=== PATIENT | female | born 1945 | race Caucasian/White ===

== ENCOUNTER 2017-03-31 16:13 | Emergency (ER) | payer MEDICARE ==
[~2017-03-31] VITALS: Ht 174 cm; Wt 156.0 kg
[~2017-03-31 16:13] MED LIST: ALLO300T74 PO; CA C-1 PO; CETI-115 PO; CITA20TA9 PO; FENO54TA6 PO; GABA-338 PO; HYDR-3989 PO; INSU100C6 SQ; INSU100V12 SQ; METO-277 PO; MULT-1198 PO; OMEG1CAP38 PO; SIMV20TA6 PO; TRIA-15 PO
[2017-03-31 16:15] VITALS: Ht 174 cm; Wt 156.0 kg
--- NOTE | 2017-03-31 16:33 | NUR ---
PROVIDER Sara TIPTON VEST FINISHER IN TO SEE PATIENT.
--- NOTE | 2017-03-31 16:46 | NUR ---
LAB NOTIFIED AT THIS TIME.
--- NOTE | 2017-03-31 16:47 | NUR ---
ICT SUPPORT TECHNICIANS IN ROOM AT THIS TIME.
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
[2017-03-31 16:57] LABS: BASOPHILS % (AUTO) 0.4 % (0-2); EOSINOPHILS # (AUTO) 0.4 T/MM3 (0-0.5); EOSINOPHILS % (AUTO) 3.9 % (0-4); HCT - HEMATOCRIT 43.4 % (36-46); HGB - HEMOGLOBIN 13.9 GM/DL (12-16); IMMATURE GRANULOCYTE # (AUTO) 0.02 T/MM3 (0.00-0.03); IMMATURE GRANULOCYTE % (AUTO) 0.2 % (0.0-0.5); LYMPHOCYTES # (AUTO) 2.4 T/MM3 (1-4.8); LYMPHOCYTES % (AUTO) 21.5 % (23-45); MEAN CORPUSCULAR HGB 32.3 UUG (26-34); MEAN CORPUSCULAR VOLUME 100.9 UM3 (80-100); MEAN PLATELET VOLUME 10.5 UM3 (9.4-12.4); MONOCYTES # (AUTO) 0.5 T/MM3 (0-0.8); MONOCYTES % (AUTO) 4.9 % (0-9.0); NEUTROPHILS #(AUTO)-ABSOLUTE 7.7 T/MM3 (1.8-7.7); NEUTROPHILS % (AUTO) 69.1 % (33-66); WBC - WHITE BLOOD COUNT 11.1 T/MM3 (4.5-11.0)
[2017-03-31 17:10] LABS: ANION GAP 13 MEQ/L (5-15); BUN/CREATININE RATIO 19 RATIO (6-26); CALCIUM 9.6 MG/DL (8.4-10.2); CHLORIDE 101 MEQ/L (98-107); CO2 - CARBON DIOXIDE 29 MEQ/L (22-30); CREATININE 1.4 MG/DL (0.7-1.2); GLOMERULAR FILTRATION RATE 37; GLUCOSE 161 MG/DL (65-110); POTASSIUM 4.3 MEQ/L (3.6-5); SODIUM 143 MEQ/L (134-144)
[2017-03-31 17:33] LABS: BLOOD, URINE NEGATIVE (NEGATIVE); COLOR,URINE YELLOW (YELLOW); LEUKOCYTE ESTERASE ,URINE NEGATIVE (NEGATIVE); NITRITE,URINE NEGATIVE (NEGATIVE); UROBILINOGEN,URINE 0.2 EU/DL (NORMAL)
--- NOTE | 2017-03-31 18:13 | NUR ---
ELIMINATION PATIENT UP TO BSC TO ATTEMPT TO VOID. WAS UNSUCCESSFUL. PLACED IN W/C FOR CT.
--- NOTE | 2017-03-31 18:16 | NUR ---
TO CT PER W/C.
--- NOTE | 2017-03-31 18:30 | NUR ---
BACK FROM CT
--- NOTE | 2017-03-31 19:18 | NUR ---
PROVIDER Sara TIPTON CARTOGRAPHY/MAPPING TECHNICIAN IN TO SEE PATIENT.
--- NOTE | 2017-03-31 19:30 | NUR ---
PROVIDER Sara TIPTON FURNITURE FINISHER IN TO TALK TO PATIENT AND FAMILY MEMBER.
[2017-03-31 19:59] VITALS: BP 143/67; PULSE 70; RESP 18; TEMP 97.7; O2SAT 94
--- NOTE | 2017-03-31 19:59 | NUR ---
DISCHARGE PT AND DAUGHTER GIVEN INSTRUCTIONS FOR CONT SELF CARE FOR WAEKNESS W/ FOLLOWUP SOCIAL WORK CONSULT. PT VERBALIZED UNDERSTANDING AND SIGNED FORM, PT LFET ER W/ WHEELCHAIR ASSIST NORMAL FOR PT, ALERT, VS CHARTED AND NO ACUTE DISTRESS W/ XFER TO P.O.V. AT DEPARTURE.
--- NOTE | 2017-04-01 08:11 | DI ---
Indication: ITS.REASON: confusion PROCEDURE: CT HEAD W/O CONTRAST: Encounter: Initial Comparison: None Technique: Axial CT images through the head were performed without contrast. Iterative Reconstruction dose reducing technique was utilized. FINDINGS: Mild atrophy. The ventricles are of normal size, shape, and contour for the patient's age. Chronic appearing bilateral basal ganglia lacunar infarcts. There are scattered areas of low attenuation in the white matter which most likely represent changes from chronic microvascular ischemia. The brainstem, cerebellum, and cerebral hemispheres otherwise have a normal morphology and CT attenuation. There is no evidence of midline displacement. No hemorrhage, signs of acute territorial stroke, mass effect, mass lesions, or edema is evident. The visualized portions of the skull base, midface, and calvarium demonstrate no abnormality. The paranasal sinuses are well aerated and free of significant disease. The tympanic and mastoid cavities appear normal. IMPRESSION: No acute intracranial abnormality or hemorrhage. There is a preliminary report by virtual radiologic. .
--- NOTE | 2017-04-04 11:39 | NUR ---
ED FOLLOW UP THIS WORKER ATTEMPTED TO REACH PT/DAUGHTER ON THIS DATE. NO ABILITY TO LEAVE MESSAGE AT THIS TIME. Addendum: 04/04/17 at 1140 by SHILPI ESCOBAR Amended: Links added.
== END 2017-03-31 19:59 | disposition home or self-care (01) ==
LOC: ED 16:13
DX: R41.0 Disorientation, unspecified (principal)
CPT/HCPCS: 36415; 80048; 81003; 85025

== ENCOUNTER 2017-10-06 16:48 | Inpatient (IN) ==
[2017-10-06] MEDS: SALINE FLUSH 10ml SYRINGE IVF PRN (17:59)
--- NOTE | 2017-10-06 18:06 | Emergency Department Report ---
Female Urogenital HPI - General Chief complaint: Urogenital-Female Stated complaint: infection in vag,blood sugar high,forgetful Time Seen by Provider: 10/06/17 17:22 Source: family Mode of arrival: wheelchair Limitations: no limitations - History of Present Illness HPI Narrative: Family brings pt in to ER with concerns that pt has some type of vaginal infection, her blood sugars have been erratic, and she has had increased weakness and is no longer able to stand for transfers. Pt has seen a physician for her vaginal "issue" she has been placed on 2 different types of topical medications of unknown type with minimal relief. MD Complaint: genital rash, genital swelling Onset (ago): day(s) Location: labia Duration: constant Relieving factors: none - Related Data Home Medications Medication Instructions Recorded Confirmed Allopurinol 300 mg PO DAILY #0 12/05/11 10/06/17 Triamterene/Hydrochlorothiazid 0.5 tab PO DAILY #0 12/05/11 10/06/17 [Maxzide 75 mg-50 mg Tablet] Citalopram Hydrobromide 20 mg PO DAILY #0 09/10/16 10/06/17 [Citalopram HBr] Simvastatin 20 mg PO HS #0 09/10/16 10/06/17 Insulin Aspart [Novolog] 10 unit SQ TIDWM #0 vial 03/31/17 10/06/17 Insulin Detemir [Levemir] 32 unit SQ HS #0 vial 03/31/17 10/06/17 Gabapentin 600 mg PO TID 07/02/17 10/06/17 Ascorbic Acid [Vitamin C] 100 mg PO DAILY 10/06/17 10/06/17 Benzocaine/Resorcinol [Vagisil 1 applic TP PRN 10/06/17 10/06/17 Cream] Hydrocodone/APAP 10/325 [Davison 1 tab PO PRN PRN 10/06/17 10/06/17 10/325] Vits A and D/White Pet/Lanolin [A 1 applic TOP PRN 10/06/17 10/06/17 and D Ointment] Allergies Allergy/AdvReac Type Severity Reaction Status Date / Time aspirin AdvReac Unknown Verified 10/06/17 17:45 dexamethasone AdvReac Unknown Verified 10/06/17 17:45 Sulfa (Sulfonamide AdvReac Unknown Verified 10/06/17 17:45 Antibiotics) dexamethasone sod phosphate AdvReac Unknown Uncoded 03/31/17 16:30 hydrocodone bit AdvReac Unknown Uncoded 03/31/17 16:30 Nitrofurantoin Macrocrystal AdvReac Unknown Uncoded 03/31/17 16:30 sertraline HCl AdvReac Unknown Uncoded 03/31/17 16:30 Review of Systems Limitations: ROS unobtainable due to patient's medical condition [facility] Patient Stated Medical History Diabetes Mellitus Type 1 Yes Now No Clinic Medical History Peripheral neuropathy (Inactive Medical) - Social History Smoking status: Former smoker Physical Exam - Limitations Limitations: altered mental status - General General appearance: alert, in no apparent distress - Normal Exams: Head:: Normocephalic without trauma Neck:: Full range of motion, without adenopathy Chest/Respirations:: Clear all garsia, with good airflow Cardiovascular:: Regular rate and rhythm, without murmur or gallop Abdomen:: Bowel sounds positive, soft, non-tender, non-distended Musculoskeletal:: No tenderness, or deformity noted, good range of motion, all extremities Integumentary:: No rashes Neurological:: Patient is alert Psychiatric:: Patient exhibits, appropriate attention, emotion and affect - External exam: Present: erythema, tenderness Course Vital Signs Pulse Rate 99 10/06/17 17:26 Respiratory Rate 20 10/06/17 17:26 Blood Pressure 140/65 H 10/06/17 17:26 Pulse Oximetry 94 10/06/17 17:26 Pulse Rate 99 10/06/17 17:26 Respiratory Rate 20 10/06/17 17:26 Blood Pressure 140/65 H 10/06/17 17:26 Pulse Oximetry 94 10/06/17 17:26 Urogenital-Female - MDM Narrative Medical decision making narrative: Pt labs reviewed. Pt to be admitted for UTI. After lengthy discussion with family they are finding care at home is becoming increasingly difficult especially with pts decreasing strength and ability to stand. Discussed findings with Dr Villanueva who has agreed to admit - Differential Diagnosis Likely: urinary tract infection, bacterial vaginosis, cervicitis, vaginitis, cystitis - Lab Data Attestation: I reviewed the patient's lab results. Result diagrams: 10/06/17 17:56 10/06/17 17:56 Lab Results 10/06/17 10/06/17 10/06/17 Range/Units 17:45 17:56 17:56 WBC 10.3 (4.5-11.0) T/MM3 RBC 4.55 (4.00-5.20) M/MM3 Hgb 15.0 (12-16) GM/DL Hct 44.0 (36-46) % MCV 96.7 (80-100) UM3 MCH 33.0 (26-34) UUG MCHC 34.1 (31-37) GM/DL RDW Std Deviation 50.6 H (36.9-50.2) FL Plt Count 288 (130-400) T/MM3 MPV 10.7 (9.4-12.4) UM3 Immature Gran % (Auto) 0.2 (0.0-0.5) % Neut % (Auto) 69.6 H (33-66) % Lymph % (Auto) 22.9 L (23-45) % Coffee % (Auto) 4.7 (0-9.0) % Eos % (Auto) 2.2 (0-4) % Baso % (Auto) 0.4 (0-2) % Neut # (Auto) 7.2 (1.8-7.7) T/MM3 Lymph # (Auto) 2.4 (1-4.8) T/MM3 Coffee # (Auto) 0.5 (0-0.8) T/MM3 Eos # (Auto) 0.2 (0-0.5) T/MM3 Baso # (Auto) 0.0 (0-0.2) T/MM3 Abs Immat Gran (auto) 0.02 (0.00-0.03) T/MM3 Turbidity < 20 (0-20) Sodium 141 (134-144) MEQ/L Potassium 3.8 (3.6-5) MEQ/L Chloride 102 (98-107) MEQ/L Carbon Dioxide 27 (22-30) MEQ/L Anion Gap 12 (5-15) MEQ/L BUN 29.0 H (7-17) MG/DL Creatinine 1.4 H (0.7-1.2) MG/DL GFR Calculation 37 BUN/Creatinine Ratio 21 (6-26) RATIO Glucose 197 H (65-110) MG/DL Calculated Osmolality 282 H (261-280) MOSM/KG Calcium 9.6 (8.4-10.2) MG/DL Total Bilirubin 0.40 (0.20-1.30) MG/DL Icterus Index < 2 (0-7) AST 23 (14-36) U/L ALT 35 (9-52) U/L Alkaline Phosphatase 77 (38-126) U/L Total Protein 8.0 (6.3-8.2) G/DL Albumin 4.2 (3.5-5.0) G/DL Globulin 3.8 H (2.4-3.6) G/DL Albumin/Globulin Ratio 1.1 (1.1-2.2) RATIO Specimen Hemolysis < 15 (0-25) Ur Collection Type Urine, catheter Urine Color Yellow (YELLOW) Urine Clarity Clear Urine pH 5.5 (5.0-8.0) Ur Specific [place] >=1.030 H (1.015-1.025) Urine Protein 2+ A (NEGATIVE) Urine Glucose (UA) Negative (NEGATIVE) Urine Ketones Negative (NEGATIVE) Urine Occult Blood Negative (NEGATIVE) Urine Nitrate Negative (NEGATIVE) Urine Bilirubin 1+ A (NEGATIVE) Urine Urobilinogen 0.2 (NORMAL) EU/DL Ur Leukocyte Esterase Negative (NEGATIVE) Urine RBC 5-10 H (0-3) /HPF Urine WBC 50-200 H (0-5) /HPF Urine WBC Clumps Many H Ur Squamous Epith Cells 20-50 Amorphous Sediment Few Urine Bacteria 2+ H (NEGATIVE) Hyaline Casts 30-50 /LPF Urine Mucus Present Ur Culture Indicated? Cult reflexed &setup Disposition Clinical Impression: Urinary tract infection Qualifiers: Urinary tract infection type: acute cystitis Hematuria presence: with hematuria Qualified Code(s): N30.01 - Acute cystitis with hematuria Disposition: 02 To [facility] Acute Care Condition: Improved Prescriptions: No Action Triamterene/Hydrochlorothiazid [Maxzide 75 mg-50 mg Tablet] 0.5 tab PO DAILY #0 Simvastatin 20 mg PO HS #0 Citalopram Hydrobromide [Citalopram HBr] 20 mg PO DAILY #0 Insulin Detemir [Levemir] 32 unit SQ HS #0 vial Insulin Aspart [Novolog] 10 unit SQ TIDWM #0 vial Benzocaine/Resorcinol [Vagisil Cream] 1 applic TP PRN Hydrocodone/APAP 325 [Davison 10/] 1 tab PO PRN PRN PRN Reason: Pain Ascorbic Acid [Vitamin C] 100 mg PO DAILY Vits A and D/White Pet/Lanolin [A and D Ointment] 1 applic TOP PRN Allopurinol 300 mg PO DAILY #0 Gabapentin 600 mg PO TID Referrals: Dong Valero DO [Primary Care Provider] - Time of Disposition: 19:28 - Seen By: midlevel
[2017-10-06] MEDS ORDERED: ONDANSETRON 4 MG/2 ML INJECTION IVP PRN (20:21)
[2017-10-06 20:47] VITALS: BMI 50.1
--- NOTE | 2017-10-06 21:12 | History & Physical Report ---
History of Present Illness Date: 10/07/17 Chief complaint: weakness HPI: 72 yo morbidly obese female with PMH of DM2 who is completely dependent on her daughter show is her primary in home caregiver presented to the ED with reports of possible vaginal infection. Patient's daughter is the primary historian as patient is confused. She reports increased weakness att home, as well as some confusion and difficult to control blood sugars. Patient reports symptoms started about 1 week ago. She has also had decreased appetite, only eating one meal a day. Daughter also reports watery diarrhea at home. Patient has been treated recently by her PCP for a "vaginal infection" with two medications , but reports the symptoms are not improving. Patient was found to have a UTI in the ED. She was admitted for further treatment. Review of Systems ROS unobtainable: due to mental status (confusion) [facility] Medical History Urinary tract infection (Acute Medical) Peripheral neuropathy (Inactive Medical) - Social History Smoking status: Former smoker Medications Home Medications Medication Instructions Recorded Confirmed Type Allopurinol 300 mg PO DAILY #0 12/05/11 10/06/17 History Triamterene/Hydrochlorothiazid 0.5 tab PO DAILY #0 12/05/11 10/06/17 History [Maxzide 75 mg-50 mg Tablet] Citalopram Hydrobromide 20 mg PO DAILY #0 09/10/16 10/06/17 History [Citalopram HBr] Simvastatin 20 mg PO HS #0 09/10/16 10/06/17 History Insulin Aspart [Novolog] 10 unit SQ TIDWM #0 vial 03/31/17 10/06/17 History Insulin Detemir [Levemir] 32 unit SQ HS #0 vial 03/31/17 10/06/17 History Gabapentin 600 mg PO TID 07/02/17 10/06/17 History Ascorbic Acid [Vitamin C] 100 mg PO DAILY 10/06/17 10/06/17 History Benzocaine/Resorcinol [Vagisil 1 applic TP PRN 10/06/17 10/06/17 History Cream] Hydrocodone/APAP 10325 [[place] 1 tab PO TID PRN 10/06/17 10/06/17 History 10325] Vits A and D/White Pet/Lanolin [A 1 applic TOP PRN 10/06/17 10/06/17 History and D Ointment] Allergies Allergy/AdvReac Type Severity Reaction Status Date / Time aspirin AdvReac Unknown Verified 10/06/17 17:45 dexamethasone AdvReac Unknown Verified 10/06/17 17:45 Sulfa (Sulfonamide AdvReac Unknown Verified 10/06/17 17:45 Antibiotics) hydrocodone bit AdvReac Unknown Itching Uncoded 10/06/17 21:07 Nitrofurantoin Macrocrystal AdvReac Unknown Uncoded 03/31/17 16:30 sertraline HCl AdvReac Unknown Uncoded 03/31/17 16:30 Exam Vital Signs: Pulse Rate 99 10/06/17 20:17 Respiratory Rate 20 10/06/17 20:17 Blood Pressure 140/65 H 10/06/17 20:17 Pulse Oximetry 94 10/06/17 20:17 Height/Weight/BMI: Height 1.73 m Weight 149.5 kg Body Mass Index 50.1 - Constitutional Present: mild distress, morbidly obese, cooperative - Routine Respiratory Exam Present: CTA bilaterally. Absent: wheezes - Routine Cardiovascular Exam Present: RRR. Absent: murmur - Routine Abdominal Exam Present: tenderness, distended - Routine Extremities Exam Present: normal capillary refill - Routine Skin Exam Comments: per TECHNICAL STAFF ENGINEER in ED patient has erythema and swelling under her pannus, vagina and inguinal area. - Routine Neurological Exam Present: altered mental status (general confusion) - Routine Psychiatric Exam Present: normal affect Results - Labs CBC & Chem 7: 10/07/17 04:10 10/07/17 04:10 Assessment and Plan (1) Altered mental status Current visit: Yes Status: Acute (2) Urinary tract infection Current visit: Yes Status: Acute (3) Weakness Current visit: Yes Status: Acute (4) Morbid obesity Current visit: Yes Status: Acute (5) Diabetes mellitus Current visit: Yes Status: Acute Assessment and Plan: admit patient for further evaluation. Likely her weakness is due to her UTI, but she has been failing at home for awhile. Daughter not able to transfer patient anymore. Will consult PT/OT in AM. Will start IV ceftriaxone for UTI, this is likely causing her general confusion as well. Patient has yeast in her skin folds, will start nystatin power. Consult social work in AM to assist with possible placement. 10/07/2017-Dr. Cano I did see and examine the patient independently this morning. I have reviewed the H&P above and agree. Please see my additions below. Patient is a pleasant 72-year-old female who lives at home with her daughter. No family was present when I saw the patient. Her only complaint at this time is of pain in her bottom from sitting on a "crack" in the bed. She denies any chest pain or shortness of breath. She denies any nausea, vomiting or diarrhea. She appears to have some mild confusion. She admits to increased weakness and poor appetite. Family had previously noted watery diarrhea but the patient denies this. Past medical history: Hypertension, diabetes, gout, hyperlipidemia, mild chronic kidney disease, mild memory problems. The patient denies depression, anxiety, heart disease and stroke Comprehensive review of systems is difficult to obtain because of the patient's confusion. Social history: Patient is a former smoker. She states she uses a walker or wheelchair at home. Family history is unobtainable. The patient states she cannot remember why her parents . Medications and allergies are reviewed Physical exam Patient is alert. She is oriented 3. Despite her orientation, she appears mildly confused. HEENT reveals sclerae to be anicteric, pupils are equal, oropharynx is moist. Neck is supple. Chest is clear to auscultation. Cardiovascular reveals a regular rate and rhythm. Abdomen is soft and nontender. She does have an umbilical hernia. Extremities are free of edema. Neurologic reveals no focal deficits. Lab is reviewed. White count today is 12.1, hemoglobin 14, platelets 276. Neutrophils are 70%. Basic metabolic is significant for potassium of 3.3. Creatinine is stable at 1.4. Liver enzymes are normal except for globulin elevated at 3.0. Urinalysis on admission showed 5-10 red cells, 50-200 white cells, 20-50 squamous epithelial cells, 2+ bacteria. Urine culture is pending. Impression Probable UTI Encephalopathy-possibly secondary to UTI (the nurse relayed to me that family had noted that the patient has hardly been sleeping the past 4-5 days and has been more confused) concerning for possible bipolar Generalized weakness-acute on chronic morbid obesity diabetes mellitus Probable chronic kidney disease Hypokalemia Plan The patient was admitted as an inpatient due to altered mental status/ encephalopathy, likely secondary to UTI. Continue ceftriaxone which was initiated on admission. PT and OT consult for strengthening. Psychiatry consult regarding encephalopathy, poor sleep. Replace potassium Recheck basic metabolic profile and CBC tomorrow Lovenox for DVT prophylaxis DC IV fluids when taking by mouth well Monitor Accu-Cheks DVT Prophylaxis: SCD's Resuscitation Status: Full Code Hospital Course Summary Disclaimer: The visit summary below is not to be considered part of the above Progress Note.
[2017-10-06] MEDS: NS 1,000 ML IV SCH (21:34)
--- OUTSIDE RECORDS SUMMARY | 2017-10-06 21:45 | External Medical Summary | Continuity of Care Document ---
:1945 Author Organization [facility] Allergies Active Description Code Type Severity Reaction Onset Reported/ Identified Relationship Clinical to Patient Status Yes ASPIRIN 1191 Drug N/A N/A Aller gy Yes SULFA Drug N/A N/A Aller gy Medications Problems Procedures Results Encounters ACCT Visit Discharge Status Pt. Type Provider Facility Loc./Unit Complaint No. Date/Time [id number] 08/11/2017 08/11/2017 DIS Outpatient [id number] 09:53:06 09:53:06 [id number] 08/10/2017 08/10/2017 CLS Outpatient [id number] 14:37:02 23:59:59 [id number] 08/10/2017 08/10/2017 CLS Outpatient [id number] 12:53:36 23:59:59 [id number] 08/10/2017 08/10/2017 CLS Outpatient [id number] 10:05:17 23:59:59 [id number] 08/10/2017 08/10/2017 CLS Outpatient [id number] 09:50:01 23:59:59 [id number] 08/10/2017 08/10/2017 CLS Outpatient [id number] 09:50:00 23:59:59 [id number] 08/10/2017 08/10/2017 DIS Outpatient [id number] 14:37:18 14:37:18 [id number] 08/10/2017 08/10/2017 DIS Outpatient [id number] 12:30:08 12:30:08 [id number] 08/10/2017 08/10/2017 DIS Outpatient [id number] 11:18:08 11:18:08 [id number] 08/10/2017 08/10/2017 DIS Outpatient [id number] 09:51:26 09:51:26 [id number] 08/10/2017 08/10/2017 DIS Outpatient [id number] 09:49:59 09:49:59 [id number] 08/05/2017 08/05/2017 CLS Outpatient [id number] 07:52:22 23:59:59 [id number] 06/20/2017 06/20/2017 CLS Outpatient [id number] 08:25:18 23:59:59 [id number] 06/20/2017 06/20/2017 CLS Outpatient [id number] 08:25:03 23:59:59 [id number] 06/20/2017 06/20/2017 DIS Outpatient [id number] 08:26:42 08:26:42 [id number] 06/20/2017 06/20/2017 DIS Outpatient [id number] 08:25:19 08:25:19 [id number] 06/20/2017 06/20/2017 DIS Outpatient [id number] 08:25:04 08:25:04 [id number] 06/20/2017 06/20/2017 DIS Outpatient [id number] 08:25:02 08:25:03 [id number] 08/10/2017 Document [id number] 10:01:00 Registration [id number] 08/10/2017 Document [id number] 09:59:00 Registration [id number]
[2017-10-06] MEDS: CEFTRIAXONE 1 G in NS 100 ML IV SCH (21:59)
[2017-10-07] MEDS: HYDROCODONE/APAP 5mg/325mg TABLET PO PRN ×2 (00:30→05:22)
[2017-10-07] MEDS: INSULIN DETEMIR 100unit/ml INJECTION SQ SCH ×2 (00:41→22:52)
[2017-10-07] MEDS: NS 1,000 ML IV SCH (08:34)
[2017-10-07] MEDS: CEFTRIAXONE 1 G in NS 100 ML IV SCH ×2 (09:08→20:16)
[2017-10-07] MEDS ORDERED: VITAMIN D PO PRN (11:00)
[2017-10-07] MEDS ORDERED: PETROLATUM PO PRN (11:00)
[2017-10-07] MEDS ORDERED: [UNRECOGNIZED DRUG - OTHER] PO PRN (11:00)
[2017-10-07] MEDS ORDERED: LANOLIN PO PRN (11:00)
[2017-10-07] MEDS ORDERED: VITAMIN A PO PRN (11:00)
[2017-10-07] MEDS: ASCORBIC ACID 500 MG TABLET PO SCH (11:56)
[2017-10-07] MEDS: TRIAMTERENE/HCTZ 75/50 TAB 1 TAB TABLET PO SCH (11:57)
[2017-10-07] MEDS: CITALOPRAM 20 MG TABLET PO SCH (11:57)
[2017-10-07] MEDS: ENOXAPARIN 40 MG/0.4 ML INJECTION SQ SCH (11:57)
[2017-10-07] MEDS: ALLOPURINOL 300 MG TABLET PO SCH (12:35)
[2017-10-07] MEDS: INSULIN ASPART 100unit/ml INJECTION SQ SCH ×2 (13:25→17:53)
[2017-10-07] MEDS: GABAPENTIN 600 MG TABLET PO SCH ×2 (15:27→20:15)
[2017-10-07] MEDS: HYDROCODONE/APAP 10 MG/325 MG TABLET PO PRN (20:15)
[2017-10-07] MEDS: SIMVASTATIN 20 MG TABLET PO SCH (20:15)
[2017-10-07] MEDS ORDERED: INSULIN DETEMIR 100unit/ml INJECTION SQ SCH (21:00)
[2017-10-08] MEDS: ENOXAPARIN 40 MG/0.4 ML INJECTION SQ SCH (09:09)
[2017-10-08] MEDS: INSULIN ASPART 100unit/ml INJECTION SQ SCH ×3 (09:09→18:22)
[2017-10-08] MEDS: ASCORBIC ACID 500 MG TABLET PO SCH (09:10)
[2017-10-08] MEDS: TRIAMTERENE/HCTZ 75/50 TAB 1 TAB TABLET PO SCH (09:10)
[2017-10-08] MEDS: GABAPENTIN 600 MG TABLET PO SCH ×3 (09:10→22:58)
[2017-10-08] MEDS: ALLOPURINOL 300 MG TABLET PO SCH (09:10)
[2017-10-08] MEDS: CITALOPRAM 20 MG TABLET PO SCH (09:10)
[2017-10-08] MEDS: CEFTRIAXONE 1 G in NS 100 ML IV SCH (09:23)
--- NOTE | 2017-10-08 13:48 | Neuropsychiatric Consult ---
[facility] HPI Date: 10/08/17 Requesting Physician: Vangie Cano Reason for Consultation: Confusion Start Time: 11:00 Stop Time: 11:30 History of Present Illness: HPI: 72 Y/O CF BB daughter for increasing confusion. Pt was found to have a UTI on admission. On face to face the pt is confused. She is only oriented x 2 and is not sure of the date. Pt appears confused and tells this account underwriter while looking at the phone "I dont know how to use this". She is pleasant and cooperative and tries to participate in the interview but is a poor historian. She states she is here because her daughter is worried about her. She denies any S/I. STRESSORS: Pt states her left on easter and she now lives with her daughter although this is not confirmed. PSYCH ROS: Pt is confused and it is difficult to get answers. She denies feeling depressed. She denies juan c or psychosis. PAST PSYCH: Unclear at this time. Pt is taking Celexa PFS Patient Stated Medical History Dementia Yes: Not diagnosed yet Hearing Loss Yes Diabetes Mellitus Type 2 Yes Hx Renal Disease Yes: Stage 3 Kidney Disease Osteoarthritis Yes Other Yes: Periheral Neuropathy Now No Clinic Medical History Urinary tract infection (Acute Medical) Altered mental status (Acute Medical) Weakness (Acute Medical) Morbid obesity (Acute Medical) Diabetes mellitus (Acute Medical) Peripheral neuropathy (Inactive Medical) - Social History Smoking status: Former smoker Mental Status Exam Vitals: Last Vital Signs Temp 96.4 F L 10/08/17 07:00 Pulse 76 10/08/17 07:00 Resp 18 10/08/17 07:00 BP 145/70 H 10/08/17 07:00 Pulse Ox 95 10/08/17 07:00 Height: 1.73 m Weight: 151.5 kg - Mental Status Exam Muscle Strength/Tone: Normal Dressing: Casual Grooming: Good Attitude: Cooperative Motor Activity: Retardation Eye Contact: Fair Speech: Slowed Volume: Soft Rhythm: Appropriate Rhythm Orientation: Oriented to person, Oriented to place Mood: Neutral Affect: Anxious Rate of Thoughts: Delayed Thought Organization: [employer] Associations: Flight of Ideas Abstract Reasoning: Poor abstract reasoning Thought Content: Normal Perception/Psychotic: Perception Normal Language: Naming Impaired Fund of Knowledge: Poor fund of knowledge Memory: Poor-immediate, Poor-recent Suicidal Ideation: None Homicidal Ideation: None Insight: Poor Judgement: Poor Impulse Control: Poor - Laboratory Result Diagrams: 10/08/17 06:12 10/08/17 06:12 Laboratory Results - last 24 hr 10/07/17 10/07/17 10/07/17 11:56 13:03 17:21 WBC RBC Hgb Hct MCV MCH MCHC RDW Std Deviation Plt Count MPV Neutrophils % (Manual) Lymphocytes % (Manual) Eosinophils % (Manual) Neutrophils # (Manual) Lymphocytes # (Manual) Eosinophils # (Manual) RBC Morph Comment Turbidity Sodium Potassium Chloride Carbon Dioxide Anion Gap BUN Creatinine GFR Calculation BUN/Creatinine Ratio Glucose Glucometer 224 195 138 Calculated Osmolality Calcium Icterus Index Specimen Hemolysis 10/07/17 10/08/17 10/08/17 22:03 06:12 06:12 WBC 10.9 RBC 4.26 Hgb 13.7 Hct 42.4 MCV 99.5 MCH 32.2 MCHC 32.3 RDW Std Deviation 51.0 H Plt Count 286 MPV 11.1 Neutrophils % (Manual) 73.0 H Lymphocytes % (Manual) 26.0 Eosinophils % (Manual) 1.0 Neutrophils # (Manual) 8.0 H Lymphocytes # (Manual) 2.8 Eosinophils # (Manual) 0.1 RBC Morph Comment Normal Turbidity < 20 Sodium 142 Potassium 3.6 Chloride 102 Carbon Dioxide 30 Anion Gap 10 BUN 26.0 H Creatinine 1.3 H D GFR Calculation 40 BUN/Creatinine Ratio 20 Glucose 164 H Glucometer 153 Calculated Osmolality 282 H Calcium 9.2 Icterus Index < 2 Specimen Hemolysis < 15 10/08/17 10/08/17 06:54 11:57 WBC RBC Hgb Hct MCV MCH MCHC RDW Std Deviation Plt Count MPV Neutrophils % (Manual) Lymphocytes % (Manual) Eosinophils % (Manual) Neutrophils # (Manual) Lymphocytes # (Manual) Eosinophils # (Manual) RBC Morph Comment Turbidity Sodium Potassium Chloride Carbon Dioxide Anion Gap BUN Creatinine GFR Calculation BUN/Creatinine Ratio Glucose Glucometer 142 180 Calculated Osmolality Calcium Icterus Index Specimen Hemolysis Assessment and Plan (1) Delirium due to another medical condition Current visit: Yes Status: Acute Continue medical management. At this time I would not start meds to treat delirium if pt remains calm and not agitated. If medication is needed I would recommend Haldol 0.5mg PO or IV Q6PRN. Reportedly sleep has been an issue and if this continues Ativan 0.5mg at HS could be helpful but could make confusion worse. Would recommend staying away from anticholinergic medications which could also make confusion worse
[2017-10-08] MEDS ORDERED: BISACODYL 10 MG SUPPOSITORY RECTALLY PRN (14:32)
--- NOTE | 2017-10-08 15:00 | Progress Note ---
- Date 10/08/17 Subjective: F/U: UTI, Acute encephalopathy, functional decline. Doing okay this afternoon. Frustrated that the food she is getting isn't what she ordered. Feels appetite fair. No nausea or ab pain. Passing flatus, but no stools. Notes some urgency to urinate, but not able to go. Did urinate this am. Breathing well-not SOA or congested. No pain with breathing. No chest pressure. Objective Vital signs: Temperature 96.4 F L 10/08/17 07:00 Pulse Rate 76 10/08/17 07:00 Respiratory Rate 18 10/08/17 07:00 Blood Pressure 145/70 H 10/08/17 07:00 Pulse Oximetry 95 10/08/17 07:00 Height/Weight/BMI: Height 1.73 m Weight 151.5 kg Body Mass Index 50.1 - Constitutional Present: well nourished, well developed, morbidly obese, cooperative. Absent: agitated, somnolent, obtunded - Routine HEENT Exam Head: Present: normocephalic, atraumatic Eye: Present: EOMI, PERRL. Absent: conjunctival icterus ENT: Present: mucous membranes moist - Routine Respiratory Exam Present: decreased breath sounds, distant breath sounds. Absent: rales, respiratory distress, rhonchi, wheezes, crackles - Routine Cardiovascular Exam Present: RRR, no murmur - Routine Abdominal Exam Present: soft, normoactive bowel sounds, non distended, non tender. Absent: guarding - Routine Extremities Exam Present: edema (+2 BLE ), pulses intact. Absent: cyanosis, clubbing - Routine Musculoskeletal Exam Musculoskeletal: Present: no clubbing or cyanosis - Routine Skin Exam Present: dry, warm - Routine Neurological Exam Present: alert, CN II-XII intact, moving all extremities, vision grossly intact , hearing grossly intact - Routine Psychiatric Exam Present: normal affect, cooperative. Absent: normal thought process (Some confusion ), anxious, agitated Results - Labs CBC & Chem 7: 10/08/17 06:12 10/08/17 06:12 Assessment and Plan (1) Urinary tract infection Current visit: Yes Status: Acute (2) Altered mental status Current visit: Yes Status: Acute (3) Weakness Current visit: Yes Status: Acute (4) Diabetes mellitus Current visit: Yes Status: Acute (5) Morbid obesity Current visit: Yes Status: Acute Assessment and Plan: Assessment Suspect UTI - no organism isolated Encephalopathy - possibly secondary to UTI Generalized weakness-acute on chronic Functional decline HTN HDL Type II diabetes mellitus - insulin requiring Peripheral neuropathy Stage III Chronic Kidney Disease Tinea of skin folds Hypokalemia (Not POA) Morbid obesity with BMI 50,8 Plan Will decrease Rocephin to once a day for urinary coverage. PT/OT initiated to help functional status. Nursing to have pt up in chair 2-3 times a day and ambulate with assistance BID. With confusion, will check TSH to exclude hypothyroidism. Check B12 due to neuropathy. Check RPR. Continue nystatin for tinea. Blood sugars and blood pressure stable. Recheck BMP and magnesium in am due to medication use. Will repeat CBC to monitor white count due to UTI. Time spent with patient care 25 minutes. DVT Prophylaxis: Lovenox Resuscitation Status: Full Code Hospital Course Summary Disclaimer: The visit summary below is not to be considered part of the above Progress Note. Hospital Course: 10/06/17 Admit patient for further evaluation. Likely her weakness is due to her UTI, but she has been failing at home for awhile. Daughter not able to transfer patient anymore. Will consult PT/OT in AM. Will start IV ceftriaxone for UTI, this is likely causing her general confusion as well. Patient has yeast in her skin folds, will start nystatin power. Consult social work in AM to assist with possible placement. 10/07/17 Jerome Continue ceftriaxone which was initiated on admission. PT and OT consult for strengthening. Psychiatry consult regarding encephalopathy, poor sleep. Replace potassium Recheck basic metabolic profile and CBC tomorrow Lovenox for DVT prophylaxis DC IV fluids when taking by mouth well Monitor Accu-Cheks 10/08/17 Vianney Will decrease Rocephin to once a day for urinary coverage. PT/OT initiated to help functional status. Nursing to have pt up in chair 2-3 times a day and ambulate with assistance BID. With confusion, will check TSH to exclude hypothyroidism. Check B12 due to neuropathy. Check RPR. Continue nystatin for tinea. Blood sugars and blood pressure stable. Recheck BMP and magnesium in am due to medication use. Will repeat CBC to monitor white count due to UTI.
[2017-10-08] MEDS: SIMVASTATIN 20 MG TABLET PO SCH (22:58)
[2017-10-08] MEDS: INSULIN DETEMIR 100unit/ml INJECTION SQ SCH (22:58)
[2017-10-08] MEDS ORDERED: DiphenhydrAMINE 25 MG CAPSULE PO PRN (23:45)
[2017-10-09] MEDS: INSULIN ASPART 100unit/ml INJECTION SQ SCH ×3 (09:20→18:30)
[2017-10-09] MEDS: ENOXAPARIN 40 MG/0.4 ML INJECTION SQ SCH (09:21)
[2017-10-09] MEDS: ALLOPURINOL 300 MG TABLET PO SCH (09:22)
[2017-10-09] MEDS: CITALOPRAM 20 MG TABLET PO SCH (09:22)
[2017-10-09] MEDS: TRIAMTERENE/HCTZ 75/50 TAB 1 TAB TABLET PO SCH (09:22)
[2017-10-09] MEDS: GABAPENTIN 600 MG TABLET PO SCH ×3 (09:22→21:32)
[2017-10-09] MEDS: ASCORBIC ACID 500 MG TABLET PO SCH (09:22)
[2017-10-09] MEDS: HYDROCODONE/APAP 10 MG/325 MG TABLET PO PRN (09:34)
[2017-10-09] MEDS: CEFTRIAXONE 1 G in NS 100 ML IV SCH (09:39)
--- NOTE | 2017-10-09 19:17 | Progress Note ---
- Date 10/09/17 Subjective: F/U: UTI, Acute encephalopathy, functional decline. Doing okay this evening-tired as had long visit today with family. Breathing well. Appetite fair. Mobility still problematic. No f/c. Objective Vital signs: Temperature 96.8 F 10/09/17 15:00 Pulse Rate 88 10/09/17 15:00 Respiratory Rate 18 10/09/17 15:00 Blood Pressure 145/83 H 10/09/17 15:00 Pulse Oximetry 93 10/09/17 15:00 Height/Weight/BMI: Height 1.73 m Weight 150.6 kg Body Mass Index 50.1 - Constitutional Present: well nourished, well developed, morbidly obese, cooperative. Absent: combative, agitated - Routine HEENT Exam Head: Present: normocephalic, atraumatic Eye: Present: EOMI, PERRL ENT: Present: mucous membranes moist - Routine Respiratory Exam Present: decreased breath sounds. Absent: rales, respiratory distress, rhonchi , wheezes, crackles - Routine Cardiovascular Exam Present: RRR, no murmur - Routine Abdominal Exam Present: soft, normoactive bowel sounds, non distended, non tender - Routine Extremities Exam Present: edema (+2 BLE ), pulses intact. Absent: cyanosis, clubbing - Routine Musculoskeletal Exam Musculoskeletal: Present: no clubbing or cyanosis - Routine Skin Exam Present: dry, warm - Routine Neurological Exam Present: alert, CN II-XII intact, moving all extremities, vision grossly intact , hearing grossly intact - Routine Psychiatric Exam Present: normal affect, cooperative. 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 Start Lisinopril 5mg nightly due to DM and HTN. Encourage activities. Recheck lab in am. B12 and RPR pending. Time spent with patient care 25 minutes. DVT Prophylaxis: Lovenox Resuscitation Status: Full Code - Time spent with patient Time with patient PN: 25 minutes Hospital Course Summary Disclaimer: The visit summary below is not to be considered part of the above Progress Note. Hospital Course: 10/06/17 Admit patient for further evaluation. Likely her weakness is due to her UTI, but she has been failing at home for awhile. Daughter not able to transfer patient anymore. Will consult PT/OT in AM. Will start IV ceftriaxone for UTI, this is likely causing her general confusion as well. Patient has yeast in her skin folds, will start nystatin power. Consult social work in AM to assist with possible placement. 10/07/17 Jerome Continue ceftriaxone which was initiated on admission. PT and OT consult for strengthening. Psychiatry consult regarding encephalopathy, poor sleep. Replace potassium Recheck basic metabolic profile and CBC tomorrow Lovenox for DVT prophylaxis DC IV fluids when taking by mouth well Monitor Accu-Cheks 10/08/17 Vianney Will decrease Rocephin to once a day for urinary coverage. PT/OT initiated to help functional status. Nursing to have pt up in chair 2-3 times a day and ambulate with assistance BID. With confusion, will check TSH to exclude hypothyroidism. Check B12 due to neuropathy. Check RPR. Continue nystatin for tinea. Blood sugars and blood pressure stable. Recheck BMP and magnesium in am due to medication use. Will repeat CBC to monitor white count due to UTI. 10/09/17 Will continue with Rocephin. Start Lisinopril 5mg nightly due to DM and HTN. Encourage activities. Recheck lab in am. B12 and RPR pending.
[2017-10-09] MEDS: SIMVASTATIN 20 MG TABLET PO SCH (21:32)
[2017-10-09] MEDS: INSULIN DETEMIR 100unit/ml INJECTION SQ SCH (21:32)
[2017-10-09] MEDS: LISINOPRIL 5 MG TABLET PO SCH (21:46)
[2017-10-09] MEDS: ACETAMINOPHEN 325 MG TABLET PO PRN (22:34)
[2017-10-09] MEDS ORDERED: FALL RISK - PHARMACY CONSULT XX ONE (23:31)
[2017-10-10] MEDS: ASCORBIC ACID 500 MG TABLET PO SCH (09:17)
[2017-10-10] MEDS: TRIAMTERENE/HCTZ 75/50 TAB 1 TAB TABLET PO SCH (09:18)
[2017-10-10] MEDS: ALLOPURINOL 300 MG TABLET PO SCH (09:19)
[2017-10-10] MEDS: GABAPENTIN 600 MG TABLET PO SCH ×3 (09:19→22:29)
[2017-10-10] MEDS: CITALOPRAM 20 MG TABLET PO SCH (09:19)
[2017-10-10] MEDS: ENOXAPARIN 40 MG/0.4 ML INJECTION SQ SCH (09:20)
[2017-10-10] MEDS: INSULIN ASPART 100unit/ml INJECTION SQ SCH ×3 (09:20→18:10)
[2017-10-10] MEDS: SALINE FLUSH 10ml SYRINGE IVF PRN (10:19)
[2017-10-10] MEDS: CEFTRIAXONE 1 G in NS 100 ML IV SCH (10:19)
--- NOTE | 2017-10-10 13:02 | CT Scan Report ---
EXAM: CT head/brain wo con COMPARISON: 03/31/2017. HISTORY: encephalopathy LOCATION OF DICTATION: [facility] [place] TECHNIQUE: Without IV contrast, axial images were obtained through the brain and reviewed in brain, soft tissue, bone, and subdural windows. The current CT scan was performed using radiation dose-reduction techniques. FINDINGS:Hypodensities are again seen in the basal ganglia regions likely representing old lacunar infarcts. The CSF spaces are prominent likely related to atrophy in keeping with age. Periventricular deep white matter hypodensities are noted likely related to small vessel ischemic disease. The suprasellar cistern and quadrigeminal plate cisterns are intact. The jay-white junctions are distinct. No sulcal effacement is identified. The basal ganglia, posterior fossa and brainstem region otherwise appear unremarkable. There is no evidence for midline shift or mass effect. The midline structures appear unremarkable. No osseous abnormalities are identified. The paranasal sinuses and mastoid air cells are clear. IMPRESSION: 1. Atrophy in keeping with age. 2. Periventricular deep white matter hypodensities are noted likely related to small vessel ischemic disease. 3. Old basal ganglia lacunar infarcts again noted. .
--- NOTE | 2017-10-10 14:38 | Progress Note ---
- Date 10/10/17 Subjective: F/U: UTI, Acute encephalopathy, functional decline. Doing fair. Not been up much. Eating well, but does not feel the food she has is want she ordered. No nausea or ab pain. Not had stool this hospitalization. No f/c. Breathing well. No chest pain. Objective Vital signs: Temperature 96.1 F L 10/10/17 07:22 Pulse Rate 76 10/10/17 07:22 Respiratory Rate 18 10/10/17 07:22 Blood Pressure 145/75 H 10/10/17 07:22 Pulse Oximetry 95 10/10/17 07:22 Height/Weight/BMI: Height 1.73 m Weight 153 kg Body Mass Index 50.1 - Constitutional Present: well nourished, well developed, morbidly obese. Absent: combative, agitated - Routine HEENT Exam Head: Present: normocephalic, atraumatic Eye: Present: EOMI, PERRL ENT: Present: mucous membranes moist - Routine Respiratory Exam Present: decreased breath sounds. Absent: respiratory distress, wheezes, crackles - Routine Cardiovascular Exam Present: RRR, no murmur - Routine Abdominal Exam Present: soft, normoactive bowel sounds, non distended, non tender - Routine Extremities Exam Present: edema (+1 BLE ), pulses intact. Absent: cyanosis, clubbing - Routine Musculoskeletal Exam Musculoskeletal: Present: no clubbing or cyanosis - Routine Skin Exam Present: dry, warm - Routine Neurological Exam Present: alert, CN II-XII intact, vision grossly intact, hearing grossly intact. Absent: motor deficit - Routine Psychiatric Exam Present: normal affect, cooperative. Absent: agitated, paranoid, manic Results - Labs CBC & Chem 7: 10/10/17 04:14 10/10/17 04:14 Assessment and Plan (1) Urinary tract infection Current visit: Yes Status: Acute (2) Altered mental status Current visit: Yes Status: Acute (3) Weakness Current visit: Yes Status: Acute (4) Diabetes mellitus Current visit: Yes Status: Acute (5) Morbid obesity Current visit: Yes Status: Acute Assessment and Plan: Assessment Suspect UTI - no organism isolated Encephalopathy - possibly secondary to UTI Suspect underlying dementia Generalized weakness-acute on chronic Functional decline HTN HDL Type II diabetes mellitus - insulin requiring Peripheral neuropathy Stage III Chronic Kidney Disease Tinea of skin folds Hypokalemia (Not POA) - resolved Morbid obesity with BMI 50,8 Plan Will d/c Rocephin - white count normal, no organism isolated. CT brain showing atrophy and chronic small vessel changes. B12 normal at 465. Creatinine and potassium stable with lisinopril. No stool since admit - cancel GI panel, start Miralax daily. Nursing to give MOM if no stool. Encourage activities and therapy. CM working on discharge disposition. Recheck BMP in am due to initiation of DEEPA. Will check CBC in am to monitor white count. Case discussed with CM and nursing. Time spent with patient care 25 minutes. DVT Prophylaxis: SCD's, Lovenox Resuscitation Status: Full Code - Time spent with patient Time with patient PN: 25 minutes Hospital Course Summary Disclaimer: The visit summary below is not to be considered part of the above Progress Note. Hospital Course: 10/06/17 Admit patient for further evaluation. Likely her weakness is due to her UTI, but she has been failing at home for awhile. Daughter not able to transfer patient anymore. Will consult PT/OT in AM. Will start IV ceftriaxone for UTI, this is likely causing her general confusion as well. Patient has yeast in her skin folds, will start nystatin power. Consult social work in AM to assist with possible placement. 10/07/17 Jerome Continue ceftriaxone which was initiated on admission. PT and OT consult for strengthening. Psychiatry consult regarding encephalopathy, poor sleep. Replace potassium Recheck basic metabolic profile and CBC tomorrow Lovenox for DVT prophylaxis DC IV fluids when taking by mouth well Monitor Accu-Cheks 10/08/17 Vianney Will decrease Rocephin to once a day for urinary coverage. PT/OT initiated to help functional status. Nursing to have pt up in chair 2-3 times a day and ambulate with assistance BID. With confusion, will check TSH to exclude hypothyroidism. Check B12 due to neuropathy. Check RPR. Continue nystatin for tinea. Blood sugars and blood pressure stable. Recheck BMP and magnesium in am due to medication use. Will repeat CBC to monitor white count due to UTI. 10/09/17 Will continue with Rocephin. Start Lisinopril 5mg nightly due to DM and HTN. Encourage activities. Recheck lab in am. B12 and RPR pending. 10/10/17 Will d/c Rocephin - white count normal, no organism isolated. CT brain showing atrophy and chronic small vessel changes. B12 normal at 465. Creatinine and potassium stable with lisinopril. No stool since admit - cancel GI panel, start Miralax daily. Nursing to give MOM if no stool. Encourage activities and therapy. CM working on discharge disposition. Recheck BMP in am due to initiation of DEEPA. Will check CBC in am to monitor white count.
[2017-10-10] MEDS: POLYETHYL GLYCOL 3350 17gm PACKET PO SCH (15:06)
[2017-10-10] MEDS: HYDROCODONE/APAP 10 MG/325 MG TABLET PO PRN (17:53)
[2017-10-10] MEDS: LISINOPRIL 5 MG TABLET PO SCH (22:29)
[2017-10-10] MEDS: SIMVASTATIN 20 MG TABLET PO SCH (22:30)
[2017-10-10] MEDS: INSULIN DETEMIR 100unit/ml INJECTION SQ SCH (22:30)
[2017-10-11] MEDS: ENOXAPARIN 40 MG/0.4 ML INJECTION SQ SCH (10:02)
[2017-10-11] MEDS: HYDROCODONE/APAP 10 MG/325 MG TABLET PO SCH ×2 (10:03→14:45)
[2017-10-11] MEDS: ALLOPURINOL 300 MG TABLET PO SCH (10:03)
[2017-10-11] MEDS: TRIAMTERENE/HCTZ 75/50 TAB 1 TAB TABLET PO SCH (10:03)
[2017-10-11] MEDS: GABAPENTIN 600 MG TABLET PO SCH ×3 (10:03→23:10)
[2017-10-11] MEDS: CITALOPRAM 20 MG TABLET PO SCH (10:07)
[2017-10-11] MEDS: ASCORBIC ACID 500 MG TABLET PO SCH (10:07)
[2017-10-11] MEDS: INSULIN ASPART 100unit/ml INJECTION SQ SCH ×3 (10:07→18:32)
[2017-10-11] MEDS: POLYETHYL GLYCOL 3350 17gm PACKET PO SCH ×2 (10:08→10:20)
--- NOTE | 2017-10-11 15:26 | Wound Care Progress Note ---
Wound Center Progress Note: Pt has moisture associated contact dermitis from incontinence. At this time pt assisted to bedside commode backside washed cleaned and dried then applied advanced skin protectant wand . Verbal orders given to nurse to repeat in 3 days if pt continues to be incontinent.
--- NOTE | 2017-10-11 18:17 | Progress Note ---
- Date 10/11/17 Subjective: F/U: UTI, Acute encephalopathy, functional decline. Went to check on patient earlier this afternoon and sleeping soundly. Wake this evening, but more confused. Nursing called earlier with report from family that patient had been getting [place] 10 routinely at home - worried her pain was going to get out of control. Uncertain if increase confusion secondary to [place] , but highly likely. Other than not reporting being up much, patient not verbalizing concerns. Eating well. No ab pain. Breathing well. Objective Vital signs: Temperature 96.5 F L 10/11/17 15:40 Pulse Rate 73 10/11/17 15:40 Respiratory Rate 16 10/11/17 15:40 Blood Pressure 152/73 H 10/11/17 15:40 Pulse Oximetry 96 10/11/17 15:40 Height/Weight/BMI: Height 1.73 m Weight 153.3 kg Body Mass Index 50.1 - Constitutional Present: well nourished, well developed, morbidly obese - Routine HEENT Exam Head: Present: normocephalic, atraumatic Eye: Present: EOMI, PERRL ENT: Present: mucous membranes moist - Routine Respiratory Exam Present: decreased breath sounds. Absent: respiratory distress, wheezes, crackles - Routine Cardiovascular Exam Present: RRR, no murmur - Routine Abdominal Exam Present: soft, non distended, non tender. Absent: normoactive bowel sounds ( decrease ) - Routine Extremities Exam Present: pulses intact. Absent: cyanosis, clubbing - Routine Musculoskeletal Exam Musculoskeletal: Absent: no clubbing or cyanosis - Routine Skin Exam Present: warm, normal turgor - Routine Neurological Exam Present: alert, CN II-XII intact, altered mental status (More confused this evening. ), moving all extremities, vision grossly intact, hearing grossly intact Results - Labs CBC & Chem 7: 10/11/17 04:22 10/11/17 04:22 Assessment and Plan (1) Urinary tract infection Current visit: Yes Status: Acute (2) Altered mental status Current visit: Yes Status: Acute (3) Weakness Current visit: Yes Status: Acute (4) Diabetes mellitus Current visit: Yes Status: Acute (5) Morbid obesity Current visit: Yes Status: Acute Assessment and Plan: Assessment Suspect UTI - no organism isolated Encephalopathy - possibly secondary to UTI Suspect underlying dementia Generalized weakness-acute on chronic Functional decline HTN HDL Type II diabetes mellitus - insulin requiring Peripheral neuropathy Stage III Chronic Kidney Disease Tinea of skin folds Hypokalemia (Not POA) - resolved Morbid obesity with BMI 50,8 Plan Restarted [place] 10/325 as family reports they had been giving it to patient routinely at home. Increase confusion this evening (has had 2 doses today). Will decrease to 5/ 325 TID and monitor. Creatinine increased to 2.0 this am. Will STOP lisinopril due to elevation of creatinine. Recheck BMP tomorrow. Encourage mobility. RPR returned Non-reactive. CM working on discharge disposition - declined by [facility]. Case discussed with CM and nursing. Time spent with patient care 25 minutes. DVT Prophylaxis: SCD's Resuscitation Status: Full Code - Time spent with patient Time with patient PN: 25 minutes Hospital Course Summary Disclaimer: The visit summary below is not to be considered part of the above Progress Note. Hospital Course: 10/06/17 Admit patient for further evaluation. Likely her weakness is due to her UTI, but she has been failing at home for awhile. Daughter not able to transfer patient anymore. Will consult PT/OT in AM. Will start IV ceftriaxone for UTI, this is likely causing her general confusion as well. Patient has yeast in her skin folds, will start nystatin power. Consult social work in AM to assist with possible placement. 10/07/17 Jerome Continue ceftriaxone which was initiated on admission. PT and OT consult for strengthening. Psychiatry consult regarding encephalopathy, poor sleep. Replace potassium Recheck basic metabolic profile and CBC tomorrow Lovenox for DVT prophylaxis DC IV fluids when taking by mouth well Monitor Accu-Cheks 10/08/17 Vianney Will decrease Rocephin to once a day for urinary coverage. PT/OT initiated to help functional status. Nursing to have pt up in chair 2-3 times a day and ambulate with assistance BID. With confusion, will check TSH to exclude hypothyroidism. Check B12 due to neuropathy. Check RPR. Continue nystatin for tinea. Blood sugars and blood pressure stable. Recheck BMP and magnesium in am due to medication use. Will repeat CBC to monitor white count due to UTI. 10/09/17 Will continue with Rocephin. Start Lisinopril 5mg nightly due to DM and HTN. Encourage activities. Recheck lab in am. B12 and RPR pending. 10/10/17 Will d/c Rocephin - white count normal, no organism isolated. CT brain showing atrophy and chronic small vessel changes. B12 normal at 465. Creatinine and potassium stable with lisinopril. No stool since admit - cancel GI panel, start Miralax daily. Nursing to give MOM if no stool. Encourage activities and therapy. CM working on discharge disposition. Recheck BMP in am due to initiation of DEEPA. Will check CBC in am to monitor white count. 10/11/17 Restarted [place] 10/325 as family reports they had been giving it to patient routinely at home. Increase confusion this evening (has had 2 doses today). Will decrease to 5/ 325 TID and monitor. Creatinine increased to 2.0 this am. Will STOP lisinopril due to elevation of creatinine. Recheck BMP tomorrow. Encourage mobility. RPR returned Non-reactive. CM working on discharge disposition - declined by [facility].
[2017-10-11] MEDS: HYDROCODONE/APAP 5mg/325mg TABLET PO SCH (23:10)
[2017-10-11] MEDS: INSULIN DETEMIR 100unit/ml INJECTION SQ SCH (23:11)
[2017-10-11] MEDS: SIMVASTATIN 20 MG TABLET PO SCH (23:11)
[2017-10-12] MEDS: ACETAMINOPHEN 325 MG TABLET PO PRN (02:51)
[2017-10-12] MEDS: INSULIN ASPART 100unit/ml INJECTION SQ SCH ×3 (09:39→17:46)
[2017-10-12] MEDS: CITALOPRAM 20 MG TABLET PO SCH (09:40)
[2017-10-12] MEDS: ALLOPURINOL 300 MG TABLET PO SCH (09:40)
[2017-10-12] MEDS: ASCORBIC ACID 500 MG TABLET PO SCH (09:40)
[2017-10-12] MEDS: GABAPENTIN 600 MG TABLET PO SCH ×3 (09:40→21:16)
[2017-10-12] MEDS: ENOXAPARIN 40 MG/0.4 ML INJECTION SQ SCH (09:40)
[2017-10-12] MEDS: TRIAMTERENE/HCTZ 75/50 TAB 1 TAB TABLET PO SCH (09:41)
[2017-10-12] MEDS: HYDROCODONE/APAP 5mg/325mg TABLET PO SCH ×4 (09:41→21:16)
[2017-10-12] MEDS: POLYETHYL GLYCOL 3350 17gm PACKET PO SCH (09:41)
[2017-10-12] MEDS: SALINE FLUSH 10ml SYRINGE IVF PRN (09:42)
--- NOTE | 2017-10-12 14:58 | Progress Note ---
<Mei Vincent V - Last Filed: 10/12/17 14:55> - Date 10/12/17 Subjective: Pascale is seen today in follow up. She is up in the chair and states she would like to go back to bed. Nursing staff reports that patient has only been out of bed for 10 minutes, they would like patient to stay up for at least 1 hour prior to lying back down. Discussed this with patient. She denies having in pain or shortness of breath. Has been eating 100% of meals. Objective Vital signs: Temperature 97.0 F 10/12/17 08:00 Pulse Rate 86 10/12/17 08:00 Respiratory Rate 18 10/12/17 08:00 Blood Pressure 140/86 H 10/12/17 08:00 Pulse Oximetry 96 10/12/17 08:00 Height/Weight/BMI: Height 1.73 m Weight 154.5 kg Body Mass Index 50.1 - Constitutional Present: no acute distress, well nourished, well developed - Routine HEENT Exam Eye: Present: EOMI ENT: Present: mucous membranes moist, dentition normal - Routine Respiratory Exam Present: CTA bilaterally. Absent: wheezes - Routine Cardiovascular Exam Present: RRR, S1, S2. Absent: murmur - Routine Abdominal Exam Present: soft, normoactive bowel sounds, distended. Absent: tenderness - Routine Extremities Exam Present: full ROM, pulses intact - Routine Back/Spine/Pelvis Exam Back/Spine: Present: full ROM - Routine Skin Exam Present: intact, dry, warm - Routine Neurological Exam Present: alert, CN II-XII intact, altered mental status (intermittently confused ) - Routine Lymphatic Exam Lymphatic: Absent: adenopathy - Routine Psychiatric Exam Present: normal affect Results - Labs CBC & Chem 7: 10/11/17 04:22 10/12/17 04:42 Assessment and Plan (1) Urinary tract infection Current visit: Yes Status: Acute (2) Altered mental status Current visit: Yes Status: Acute (3) Weakness Current visit: Yes Status: Acute (4) Morbid obesity Current visit: Yes Status: Acute (5) Diabetes mellitus Current visit: Yes Status: Acute Assessment and Plan: Assessment Suspect UTI - no organism isolated Encephalopathy - possibly secondary to UTI Suspect underlying dementia Generalized weakness-acute on chronic Functional decline HTN HDL Type II diabetes mellitus - insulin requiring Peripheral neuropathy Stage III Chronic Kidney Disease Tinea of skin folds Hypokalemia (Not POA) - resolved Morbid obesity with BMI 50,8 Plan Creatinine trending down today, [place]all[place] Cutter is 1.8. Lisinopril on Hold. Encourage mobility Lovenox SQ daily for DVT prophylaxis CM working on discharge plan hopeful for tomorrow Hospital Course Summary Disclaimer: The visit summary below is not to be considered part of the above Progress Note. Hospital Course: 10/06/17 Admit patient for further evaluation. Likely her weakness is due to her UTI, but she has been failing at home for awhile. Daughter not able to transfer patient anymore. Will consult PT/OT in AM. Will start IV ceftriaxone for UTI, this is likely causing her general confusion as well. Patient has yeast in her skin folds, will start nystatin power. Consult social work in AM to assist with possible placement. 10/07/17 Jerome Continue ceftriaxone which was initiated on admission. PT and OT consult for strengthening. Psychiatry consult regarding encephalopathy, poor sleep. Replace potassium Recheck basic metabolic profile and CBC tomorrow Lovenox for DVT prophylaxis DC IV fluids when taking by mouth well Monitor Accu-Cheks 10/08/17 Vianney Will decrease Rocephin to once a day for urinary coverage. PT/OT initiated to help functional status. Nursing to have pt up in chair 2-3 times a day and ambulate with assistance BID. With confusion, will check TSH to exclude hypothyroidism. Check B12 due to neuropathy. Check RPR. Continue nystatin for tinea. Blood sugars and blood pressure stable. Recheck BMP and magnesium in am due to medication use. Will repeat CBC to monitor white count due to UTI. 10/09/17 Will continue with Rocephin. Start Lisinopril 5mg nightly due to DM and HTN. Encourage activities. Recheck lab in am. B12 and RPR pending. 10/10/17 Will d/c Rocephin - white count normal, no organism isolated. CT brain showing atrophy and chronic small vessel changes. B12 normal at 465. Creatinine and potassium stable with lisinopril. No stool since admit - cancel GI panel, start Miralax daily. Nursing to give MOM if no stool. Encourage activities and therapy. CM working on discharge disposition. Recheck BMP in am due to initiation of DEEPA. Will check CBC in am to monitor white count. 10/11/17 Restarted [place] 10/325 as family reports they had been giving it to patient routinely at home. Increase confusion this evening (has had 2 doses today). Will decrease to 5/ 325 TID and monitor. Creatinine increased to 2.0 this am. Will STOP lisinopril due to elevation of creatinine. Recheck BMP tomorrow. Encourage mobility. RPR returned Non-reactive. CM working on discharge disposition - declined by [facility]. 10/12/17 Plan Creatinine trending down today, Scall[place] Cutter is 1.8. Lisinopril on Hold. Encourage mobility Lovenox SQ daily for DVT prophylaxis CM working on discharge plan hopeful for tomorrow <Ada Mistry - Last Filed: 10/12/17 20:10> - Date 10/12/17 Objective Vital signs: Results - Labs CBC & Chem 7: 10/11/17 04:22 10/12/17 04:42 Assessment and Plan (1) Urinary tract infection Current visit: Yes Status: Acute (2) Altered mental status Current visit: Yes Status: Acute (3) Weakness Current visit: Yes Status: Acute (4) Morbid obesity Current visit: Yes Status: Acute (5) Diabetes mellitus Current visit: Yes Status: Acute Assessment and Plan: I have independently evaluated and examined this patient. I reviewed the chart, the patient's history, and the [employer]/PA's documented findings as above. We discussed and formulated the assessment and plan as above with additions as below: Mrs. Fraire denies specific concerns when seen; she reports that she slept earlier for the first time in several days. She reports chronic pain in her legs that resulted in her being nearly nonambulatory. Patient was cooperative, oriented to [facility], 2019-after several tries, and could not identify her primary care physician reporting that she didn 't have one. She laughs inappropriately at frequent intervals but was otherwise pleasant. Patient is pleasantly confused at this time. Respirations were nonlabored with good airflow and breath sounds are clear Patient moves all extremities well, +2 edema lower extremities Weight up about 5 kg from admission. Creatinine slightly improved from yesterday-please note lisinopril has been discontinued due to development of acute kidney injury with DEEPA inhibitor. Antibiotics discontinued several days ago after failure to identify acute infection although UTI was suspected on admission. Ongoing placement efforts-2 facilities have accepted the patient, awaiting [employer] authorization and family decision. Hospital Course Summary Disclaimer: The visit summary below is not to be considered part of the above Progress Note.
[2017-10-12] MEDS: INSULIN DETEMIR 100unit/ml INJECTION SQ SCH (21:15)
[2017-10-12] MEDS: SIMVASTATIN 20 MG TABLET PO SCH (21:16)
[2017-10-13 07:27] VITALS: BP 125/85; PULSE 102; RESP 18; TEMP 97.7; O2SAT 93
[2017-10-13] MEDS: HYDROCODONE/APAP 5mg/325mg TABLET PO SCH (09:38)
[2017-10-13] MEDS: CITALOPRAM 20 MG TABLET PO SCH (09:39)
[2017-10-13] MEDS: ASCORBIC ACID 500 MG TABLET PO SCH (09:39)
[2017-10-13] MEDS: TRIAMTERENE/HCTZ 75/50 TAB 1 TAB TABLET PO SCH (09:40)
[2017-10-13] MEDS: GABAPENTIN 600 MG TABLET PO SCH (09:40)
[2017-10-13] MEDS: ENOXAPARIN 40 MG/0.4 ML INJECTION SQ SCH (09:40)
[2017-10-13] MEDS: ALLOPURINOL 300 MG TABLET PO SCH (09:40)
[2017-10-13] MEDS: INSULIN ASPART 100unit/ml INJECTION SQ SCH ×2 (09:41→12:42)
[2017-10-13] MEDS: POLYETHYL GLYCOL 3350 17gm PACKET PO SCH (09:41)
--- NOTE | 2017-10-13 10:49 | Wound Care Progress Note ---
Wound Center Progress Note: Pt continues to be inconsistent Advanced protect appears to be helping, Pt is not very compliant about really rolling of her back side so we will work toward keeping her dry and will reapply Advanced skin protectant today. And every 3 days.
--- NOTE | 2017-10-13 11:03 | Extended Care Facility Orders ---
Admission Orders Admit to:: [facility] Allergies/Adverse Reactions: Allergies aspirin Adverse Reaction (Unknown, Verified 10/06/17 17:45) dexamethasone Adverse Reaction (Unknown, Verified 10/06/17 17:45) Sulfa (Sulfonamide Antibiotics) Adverse Reaction (Unknown, Verified 10/06/17 17: 45) hydrocodone bit Adverse Reaction (Unknown, Uncoded 10/06/17 21:07) Itching Nitrofurantoin Macrocrystal Adverse Reaction (Unknown, Uncoded 03/31/17 16:30) sertraline HCl Adverse Reaction (Unknown, Uncoded 03/31/17 16:30) Admitting Diagnosis: UTI, Weakness Admitting Physician: Ada Mistry MD Attending Physician: Ada Mistry MD Code Status: Full Code Anticiapted Length of Stay: greater than 30 days Rehab Potential: good Rehab Prognosis: good Diet: 10/10/17 Dinner Consistent Carbohydrate Diet [DIET] Calorie Level: 2200 Fluid Consistency: REGLIQU Food Consistency: CHMEAT Wound/Incision Care: Use skin protectant to buttock daily May use Facility Protocol or Standing Orders: Yes May have flu vaccine: Yes Evaluations/Treatment: PT, OT [facility] Certification: I certify that SNF services are required to be given on an Inpatient basis because of the patients need for long term care on a continuing basis for the condition(s) for which he/she received inpatient hospital services prior to his/her transfer to the SNF. SNF inpatient care is necessary for the following reasons Indication for [facility]: Diabetic Assessment, Other (PT,OT) - Additional Information In Event of Arrest: Start CPR,call 911,send patient to the ER Referrals: Dong Valero DO [Primary Care Provider] - (Follow up in 1 week) Additional Orders: Check Accu-Cheks with meals and at at bedtime as well as as needed. Use skin protectant topically to Buttock for barrier
--- NOTE | 2017-10-13 11:07 | Discharge Summary ---
<Mei Vincent V - Last Filed: 10/13/17 11:04> Discharge Information Date of admission: 10/06/17 19:29 Anticipated date of discharge: 10/13/17 Attending Physician: Ada Mistry MD Primary care physician: Dong Valero DO Consults: 10/07/17 - Dr Linn Donahue- psychiatry - Discharge Diagnosis (1) Urinary tract infection Status: Acute (2) Altered mental status Status: Acute (3) Weakness Status: Acute (4) Morbid obesity Status: Acute (5) Diabetes mellitus Status: Acute Encephalopathy - possibly secondary to UTI Suspect underlying dementia Generalized weakness-acute on chronic Functional decline HTN HDL Type II diabetes mellitus - insulin requiring Peripheral neuropathy Stage III Chronic Kidney Disease Tinea of skin folds Hypokalemia (Not POA) - resolved Morbid obesity with BMI 50,8 - Procedures Procedures: None - Laboratory Labs: 10/11/17 04:22 10/13/17 04:15 Laboratory Tests 10/13/17 04:15 Albumin 3.3 L - Microbiology Microbiology 10/06/17 17:45 Urine, Cath Figueredo Urine Culture - Final- Mixed Bacterial Alesia - Radiology Radiology: 10/10/17-CT scan of the head- IMPRESSION: 1. Atrophy in keeping with age. 2. Periventricular deep white matter hypodensities are noted likely related to small vessel ischemic disease. 3. Old basal ganglia lacunar infarcts again noted. 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 Patient's daughter is the primary historian as patient is confused. She reports increased weakness att home, as well as some confusion and difficult to control blood sugars. Patient reports symptoms started about 1 week ago. She has also had decreased appetite, only eating one meal a day. Daughter also reports watery diarrhea at home. Patient has been treated recently by her PCP for a "vaginal infection" with two medications , but reports the symptoms are not improving. Patient was found to have a UTI in the ED. She was admitted for further treatment. Objective Vital signs: Temperature 97.7 F 10/13/17 07:26 Pulse Rate 102 H 10/13/17 07:26 Respiratory Rate 18 10/13/17 07:26 Blood Pressure 125/85 10/13/17 07:26 Pulse Oximetry 93 10/13/17 07:26 Height/Weight/BMI: Height 1.73 m Weight 154.5 kg Body Mass Index 50.1 - Constitutional Present: no acute distress, well nourished, well developed, obese - Routine HEENT Exam Eye: Present: EOMI ENT: Present: mucous membranes moist, dentition normal - Routine Respiratory Exam Present: diminished air movement. Absent: wheezes - Routine Cardiovascular Exam Present: RRR, S1, S2. Absent: murmur - Routine Abdominal Exam Present: soft, normoactive bowel sounds, non distended. Absent: tenderness - Routine Extremities Exam Present: edema (trace bilateral) - Routine Skin Exam Present: intact, dry, warm - Routine Neurological Exam Present: alert, CN II-XII intact - Routine Lymphatic Exam Lymphatic: Absent: adenopathy - Routine Psychiatric Exam Present: normal affect, cooperative Hospital Course This is a general summary of the patient's hospital course. For more details refer to the complete medical record. Hospital course: 10/06/17 Admit patient for further evaluation. Likely her weakness is due to her UTI, but she has been failing at home for awhile. Daughter not able to transfer patient anymore. Will consult PT/OT in AM. Will start IV ceftriaxone for UTI, this is likely causing her general confusion as well. Patient has yeast in her skin folds, will start nystatin power. Consult social work in AM to assist with possible placement. 10/07/17 Jerome Continue ceftriaxone which was initiated on admission. PT and OT consult for strengthening. Psychiatry consult regarding encephalopathy, poor sleep. Replace potassium Recheck basic metabolic profile and CBC tomorrow Lovenox for DVT prophylaxis DC IV fluids when taking by mouth well Monitor Accu-Cheks 10/08/17 Vianney Will decrease Rocephin to once a day for urinary coverage. PT/OT initiated to help functional status. Nursing to have pt up in chair 2-3 times a day and ambulate with assistance BID. With confusion, will check TSH to exclude hypothyroidism. Check B12 due to neuropathy. Check RPR. Continue nystatin for tinea. Blood sugars and blood pressure stable. Recheck BMP and magnesium in am due to medication use. Will repeat CBC to monitor white count due to UTI. 10/09/17 Will continue with Rocephin. Start Lisinopril 5mg nightly due to DM and HTN. Encourage activities. Recheck lab in am. B12 and RPR pending. 10/10/17 Will d/c Rocephin - white count normal, no organism isolated. CT brain showing atrophy and chronic small vessel changes. B12 normal at 465. Creatinine and potassium stable with lisinopril. No stool since admit - cancel GI panel, start Miralax daily. Nursing to give MOM if no stool. Encourage activities and therapy. CM working on discharge disposition. Recheck BMP in am due to initiation of DEEPA. Will check CBC in am to monitor white count. 10/11/17 Restarted Clayton 10/325 as family reports they had been giving it to patient routinely at home. Increase confusion this evening (has had 2 doses today). Will decrease to 5/ 325 TID and monitor. Creatinine increased to 2.0 this am. Will STOP lisinopril due to elevation of creatinine. Recheck BMP tomorrow. Encourage mobility. RPR returned Non-reactive. CM working on discharge disposition - declined by [facility]. 10/12/17 Plan Creatinine trending down today, Party Coordinator is 1.8. Lisinopril on Hold. Encourage mobility Lovenox SQ daily for DVT prophylaxis CM working on discharge plan hopeful for tomorrow 10/13/17- Discharge Pascale is seen and examined today. She is alert and pleasant. She denies any specific pain, shortness of breath or GI concerns. She is comfortably breathing on room air without evidence of distress. Discussed discharge plans as patient has been accepted to [facility]. Case discussed with CM and attending. Copy of discharge plan to PCP Dr Dong Valero. Time spent with patient: discharge greater than 30 minutes Discharge Plan - Discharge Disposition Discharge Date: 10/13/17 Disposition: 03 To [facility] Not [facility] [place] (SNF) *Condition: Stable Reason For Visit (Visit label in EMR): UTI, Weakness - Discharge Medications *Discharge Medications: New Bisacodyl Supp [Dulcolax] 10 mg RECTALLY DAILY PRN supp PRN Reason: Constipation PEG 3350 17gm PACKET [Miralax] 17 gm PO DAILY packet Nystatin Powder [Mycostatin] 1 applic TP TID bottle Continue Triamterene/Hydrochlorothiazid [Maxzide 75 mg-50 mg Tablet] 0.5 tab PO DAILY #0 Simvastatin 20 mg PO HS #0 Citalopram Hydrobromide [Citalopram HBr] 20 mg PO DAILY #0 Insulin Detemir [Levemir] 32 unit SQ HS #0 vial Insulin Aspart [Novolog] 10 unit SQ TIDWM #0 vial Benzocaine/Resorcinol [Vagisil Cream] 1 applic TP PRN Ascorbic Acid [Vitamin C] 100 mg PO DAILY Vits A and D/White Pet/Lanolin [A and D Ointment] 1 applic TOP PRN Allopurinol 300 mg PO DAILY #0 Gabapentin 600 mg PO TID Hydrocodone/APAP 10/325 [Clayton 10/325] 1 tab PO TID PRN #30 tab PRN Reason: Pain - Discharge Packet/Instructions *Diet: Carb Consistent- 2200 calorie. Regular liquids with chopped meats *Activity: Activity as tolerated *Pain Management/Treatment: Clayton or tylenol as needed for pain *Wound Care: Use skin protectant to buttock daily Additional Instructions: monitor Accuchecks AC,HS. PRN. *Expected Signs/Symptoms: Continued improvement in strength *Notify Physician if: Fever, shortness of breath, chest pain, or other concerning symptoms *During Business Hours Contact: Contact PCP *After Business Hours Contact: Page claudy Monroy *Pending Lab/Results: No Pending Lab - Referrals/Follow Up *Referrals/Follow Up: Maurice Hinson MD [Physician] - (2-3 days at [facility]) - Patient Handouts Patient Handouts: Urinary Tract Infection in Women (GEN) - Dismissal Complete Discharge Instructions are:: Complete <Ada Mistry - Last Filed: 10/13/17 14:14> Discharge Information Date of admission: 10/06/17 19:29 - Discharge Diagnosis (1) Urinary tract infection Status: Acute (2) Altered mental status Status: Acute (3) Weakness Status: Acute (4) Morbid obesity Status: Acute (5) Diabetes mellitus Status: Acute - Laboratory Labs: 10/11/17 04:22 10/13/17 04:15 Objective Height/Weight/BMI: Height 1.73 m Weight 154.5 kg Body Mass Index 50.1 Hospital Course This is a general summary of the patient's hospital course. For more details refer to the complete medical record. Hospital course: I have independently evaluated and examined this patient. I reviewed the chart, the patient's history, and the BEAM HOUSE INSPECTOR/PA's documented findings as above. We discussed and formulated the assessment and plan as above with additions as below: Mrs. Fraire reports that she is exhausted this morning; she again describes not sleeping well overnight and nursing is unsure what sleep status was overnight. Patient is ambulating short distances with assistance and requires multiple staff members to assist her in and out of bed. Patient denies dyspnea or pain at present. On examination the patient is drowsy and responds to questions with minimal content. Respirations are nonlabored. Regular rhythm, benign abdomen. Creatinine 1.4-improving after trial with lisinopril led to acute kidney injury. Remains moderately confused; on Clayton 5 for chronic pain/arthritis-may benefit from trial of scheduled Tylenol in place of narcotics. Similarly may benefit from decreased dose gabapentin over time. Patient described peripheral neuropathy yesterday without characterizing symptoms. UTI suspected on admission but not confirmed during the hospital course; UC was obtained prior to Abx administration. Narcotics may play a role in pts confusion as demonstrated when reintroduced. Labs do not suggest hypercarbia and no acute abn on CT head. Stable for discharge to half-way where she will be under the care Dr. Manzo. Time spent with patient: discharge greater than 30 minutes
== END 2017-10-13 13:40 | DRG 689 ==
LOC: ED 16:48 → SUATTDRO 19:29 → MED 19:29
PROVIDERS: ADMIT Internal Medicine; ATTEND Internal Medicine